=== PATIENT | female | born 1955 | race Caucasian/White ===

== ENCOUNTER 2018-05-07 11:52 | Day surgery (SDC) | payer OTHER ==
[2018-05-07] MEDS ORDERED: PROPOFOL 60 ML (13:37)
[2018-05-07] MEDS ORDERED: LIDOCAINE 2% (SDV) 5 ML INJ (13:37)
== END 2018-05-07 14:39 | disposition home or self-care (01) ==
LOC: GIL 11:52
DX: Z12.11 Encounter for screening for malignant neoplasm of colon (principal); K29.50 Unspecified chronic gastritis without bleeding; K64.8 Other hemorrhoids; K21.9 Gastro-esophageal reflux disease without esophagitis; D12.5 Benign neoplasm of sigmoid colon
CPT/HCPCS: 43239; 88305; 88312